=== PATIENT | male | born 1950 | race African-American/Black ===

== ENCOUNTER 2018-09-23 17:37 | Inpatient (IN) | payer OTHER ==
--- NOTE | 2018-09-23 22:11 | HP ---
COWS - Scale Resting Pulse: 0= [place] 80 or Below Sweatin=Flushed/Facial Moisture Restless Observation: 0= Sits Still Pupil Size: 0= Normal to Room Light Bone or Joint Aches: 4=Acute Joint/Muscle Pain Runny Nose/ Eye Tearin= Runny Nose/Eyes GI Upset > 30mins: 2= Nausea/Diarrhea (diarhea x 3) Tremor Observation: 2= Slight Tremor Visible Yawning Observation: 1= 1-2x During Session Anxiety or Irritability: 4=Extreme Anxiety Goose Flesh Skin: 0=Smooth Skin COWS Score: 17 CIWA Score - Admission Criteria OASAS Guidelines: Admission for Medically Managed Detox: Requires at least one of the followin. CIWA greater than 12 2. Seizures within the past 24 hours 3. Delirium tremens within the past 24 hours 4. Hallucinations within the past 24 hours 5. Acute intervention needed for co occurring medical disorder 6. Acute intervention needed for co occurring psychiatric disorder 7. Severe withdrawal that cannot be handled at a lower level of care (continued vomiting, continued diarrhea, abnormal vital signs) requiring intravenous medication and/or fluids 8. Admission ROS [facility] Chief Complaint: Heroin withdrawal symptoms Allergies/Adverse Reactions: Allergies Allergy/AdvReac Type Severity Reaction Status Date / Time No Known Allergies Allergy Verified 09/23/18 21:26 History of Present Illness: 68 years old male with 47 years of heroin dependence is seeking admission to detox. Patient reports that this is his first detoxification and first admission to [facility]. He has medical history of depression. Patient denies suicide attempt and suicidal ideation at this time - Ebola screening Have you traveled outside of the country in the last 21 days: No (N) Have you had contact with anyone from an Ebola affected area: No Do you have a fever: No Patient History - Patient Medical History Hx Anemia: No Hx Asthma: No Hx Chronic Obstructive Pulmonary Disease (COPD): No Hx Cancer: No Hx Cardiac Disorders: No Hx Congestive Heart Failure: No Hx Hypertension: No Hx Hypercholesterolemia: No Hx Pacemaker: No HX Cerebrovascular Accident: No Hx Seizures: No Hx Dementia: No Hx Diabetes: No Hx Gastrointestinal Disorders: No Hx Liver Disease: No Hx Genitourinary Disorders: No Hx Sexually Transmitted Disorders: No Hx Renal Disease (ESRD): No Hx Thyroid Disease: No Hx Hepatitis C: No Hx Depression: Yes Hx Suicide Attempt: No (Denies suicidal ideation at this tme) Hx Bipolar Disorder: No Hx Schizophrenia: No - Patient Surgical History Past Surgical History: Yes Hx Orthopedic Surgery: Yes (LEFT KNEE REPLACEMENT 2007) Other Surgical History: LEFT HAND SURGERY 2000 - PPD History Previous Implant?: Yes Documented Results: Negative w/o proof Implanted On Prior [facility] Admission?: No PPD to be Administered?: Yes - Reproductive History Patient is a Female of Child Bearing Age (11 -55 yrs old): No (Male) - Smoking Cessation Smoking history: Never smoked Have you smoked in the past 12 months: No Hx Chewing Tobacco Use: No Initiated information on smoking cessation: No - Substances abused Heroin Substance route: Inhalation Frequency: Daily Amount used: 5 to 6 bags Age of first use: 29 Date of last use: 09/23/18 Cocaine Other (specify): sniff Frequency: Daily Amount used: i don't know Age of first use: 29 Date of last use: 09/23/18 Family Disease History - Family Disease History Family History: Denies Admission Physical Exam [facility] - Physical General Appearance: Yes: Moderate Distress, Tremorous, Sweating, Anxious HEENTM: Yes: Normal ENT Inspection, Normal Voice Respiratory: Yes: Lungs Clear, Normal Breath Sounds, No Respiratory Distress Neck: Yes: Supple Breast: Yes: Breast Exam Deferred Cardiology: Yes: Regular Rhythm, Regular Rate Abdominal: Yes: Normal Bowel Sounds Genitourinary: Yes: Within Normal Limits Back: Yes: Normal Inspection Musculoskeletal: Yes: Back pain, Joint swelling, Muscle Pain Extremities: Yes: Tremors Neurological: Yes: Alert, Normal Mood/Affect Integumentary: Yes: Warm Lymphatic: Yes: Within Normal Limits - Diagnostic (1) Opioid dependence with withdrawal Current Visit: Yes Status: Chronic (2) Depression Current Visit: Yes Status: Chronic Qualifiers: Depression Type: unspecified Qualified Code(s): F32.9 - Major depressive disorder, single episode, unspecified (3) Cocaine dependence, uncomplicated Current Visit: Yes Status: Chronic Cleared for Admission [facility] - Detox or Rehab [facility] Level of Care: Medically Managed Detox Regimen/Protocol: Methadone Breathalyzer - Breathalyzer Breathalyzer: 0 Urine Drug Screen - Test Device Lot number: [id number] Expiration date: 09/20/19 - Control Is test valid?: Yes - Results Drug screen NEGATIVE: No Urine drug screen results: TROY-Cocaine, FEN-Fentanyl, MOP-Opiates, BZO- Benzodiazepines Inpatient Rehab Admission - Rehab Decision to Admit Inpatient rehab admission?: No
[2018-09-23] MEDS ORDERED: IBUPROFEN 400 MG TABLET (FP) PO PRN (22:23)
[2018-09-23] MEDS ORDERED: MAG HYDROX/AL HYDROX/SIMETH 30 ML UNIT-DOSE CUP PO PRN (22:23)
[2018-09-23] MEDS ORDERED: ACETAMINOPHEN 325 MG TABLET (FP) PO PRN ×2 (22:23)
[2018-09-23] MEDS ORDERED: MAGNESIUM HYDROX 2400MG/30ML ORAL SUSPENSION 30 ML CUP PO PRN (22:23)
[2018-09-23] MEDS ORDERED: MAGNESIUM CITRATE 300 ML BOTTLE PO PRN (22:23)
[2018-09-23] MEDS ORDERED: METHOCARBAMOL 500 MG TABLET PO PRN (22:23)
[2018-09-23] MEDS ORDERED: MENTHOL/PHENOL 1 EACH UD MM PRN (22:23)
[2018-09-23] MEDS ORDERED: hydrOXYzine PAMOATE 25 MG CAPSULE (FP) PO PRN (22:23)
[2018-09-23] MEDS ORDERED: BISMUTH SUBSALICYLATE 524 MG/30 ML UD PO PRN (22:23)
[2018-09-23] MEDS ORDERED: cloNIDine HCL 0.1 MG TABLET PO PRN (22:23)
[2018-09-23] MEDS ORDERED: METHADONE HCL 10 MG TABLET (FOR DETOX USE ONLY) PO ONE (23:00)
[2018-09-24] MEDS ORDERED: METHADONE HCL 10 MG TABLET (FOR DETOX USE ONLY) PO ONE (10:00)
[2018-09-24 10:19] LABS: HEMATOCRIT 39.6 % (35.4-49); HEMOGLOBIN 12.7 GM/dL (11.7-16.9); MCH 26.5 pg (25.7-33.7); MEAN CELL VOLUME 82.7 fl (80-96); MEAN PLT VOLUME 9.4 fl (7.5-11.1); PLATELET COUNT 216 K/MM3 (134-434); RBC 4.79 M/mm3 (4.00-5.60); RDW 14.7 % (11.9-15.9)
[2018-09-24] MEDS: PRENATAL VITAMINS W/ FOLIC ACID TABLET (FP) PO SCH (10:30)
[2018-09-24 10:34] LABS: ALBUMIN 3.1 g/dl (3.4-5.0); ALK PHOS 68 U/L (45-117); ANION GAP 8 MMOL/L (8-16); BILIRUBIN,TOTAL 0.5 mg/dL (0.2-1); BLOOD UREA NITROGEN 19 mg/dL (7-18); CALCIUM 8.7 mg/dL (8.5-10.1); CHLORIDE 105 mmol/L (98-107); CO2 28 mmol/L (21-32); CREATININE 1.3 mg/dL (0.55-1.3); GLUCOSE,RANDOM 92 mg/dL (74-106); SGOT/AST 14 U/L (15-37); SGPT/ALT 17 U/L (13-61); SODIUM 141 mmol/L (136-145); TOT PROT 6.9 g/dl (6.4-8.2)
--- NOTE | 2018-09-24 16:19 | PN ---
[facility] COWS - Scale Resting Pulse: 0= [place] 80 or Below Sweatin= Chills/Flushing Restless Observation: 0= Sits Still Pupil Size: 0= Normal to Room Light Bone or Joint Aches: 2= Severe Diffuse Aches Runny Nose/ Eye Tearin= None GI Upset > 30mins: 2= Nausea/Diarrhea Tremor Observation of Outstretched Hands: 2= Slight Tremor Visible Yawning Observation: 1= 1-2x During Session Anxiety or Irritability: 2=Irritable/Anxious Goose Flesh Skin: 3=Piloerection COWS Score: 13 BHS Progress Note (SOAP) Subjective: Sweating, Body Aches, Tremors, Diarrhea. Objective: PATIENT A & O X 3, OBSERVED AMBULATING ON UNIT. IN NO ACUTE DISTRESS. 09/24/18 16:20 Vital Signs Temperature 98.4 F 09/24/18 13:47 Pulse Rate 58 L 09/24/18 13:47 Respiratory Rate 18 09/24/18 13:47 Blood Pressure 111/74 09/24/18 13:47 O2 Sat by Pulse Oximetry (%) Laboratory Tests 09/24/18 09/24/18 09/24/18 07:00 07:00 07:00 WBC 4.0 RBC 4.79 Hgb 12.7 Hct 39.6 MCV 82.7 MCH 26.5 MCHC 32.0 RDW 14.7 Plt Count 216 MPV 9.4 Sodium 141 Potassium 4.0 Chloride 105 Carbon Dioxide 28 Anion Gap 8 BUN 19 H Creatinine 1.3 Creat Clearance w eGFR 55.06 Random Glucose 92 Calcium 8.7 Total Bilirubin 0.5 AST 14 L ALT 17 Alkaline Phosphatase 68 Total Protein 6.9 Albumin 3.1 L RPR Titer Nonreactive LABS NOTED. Assessment: 09/24/18 16:21 WITHDRAWAL SYMPTOMS. Plan: CONTINUE DETOX. INCREASE DAILY PO FLUID INTAKE. PRN PEPTO-BISMOL PO FOR DIARRHEA. D/C MAGNESIUM-CONTAINING MEDS. FOR ABNORMAL ADMISSION RENAL LAB VALUES.
[2018-09-24] MEDS: THIAMINE HCL 100 MG TABLET (FP) PO SCH (22:24)
[2018-09-25] MEDS ORDERED: METHADONE HCL 10 MG TABLET (FOR DETOX USE ONLY) PO ONE (10:00)
[2018-09-25] MEDS: PRENATAL VITAMINS W/ FOLIC ACID TABLET (FP) PO SCH (10:22)
--- NOTE | 2018-09-25 12:38 | PN ---
[facility] COWS - Scale Resting Pulse: 0= [place] 80 or Below Sweatin= Chills/Flushing Restless Observation: 1= Difficult to Sit Still Pupil Size: 1= Pupils >than Normal Bone or Joint Aches: 2= Severe Diffuse Aches Runny Nose/ Eye Tearin= Runny Nose/Eyes GI Upset > 30mins: 2= Nausea/Diarrhea Tremor Observation of Outstretched Hands: 2= Slight Tremor Visible Yawning Observation: 1= 1-2x During Session Anxiety or Irritability: 2=Irritable/Anxious Goose Flesh Skin: 0=Smooth Skin COWS Score: 14 S Progress Note (SOAP) Subjective: alert,irritable,anxious,interrupted sleep,tremor Objective: 09/25/18 12:40 Vital Signs Temperature 97.5 F L 09/25/18 10:17 Pulse Rate 62 09/25/18 10:17 Respiratory Rate 18 09/25/18 10:17 Blood Pressure 108/64 09/25/18 10:17 O2 Sat by Pulse Oximetry (%) Laboratory Last Values WBC 4.0 K/mm3 (4.0-10.0) 09/24/18 07:00 RBC 4.79 M/mm3 (4.00-5.60) 09/24/18 07:00 Hgb 12.7 GM/dL (11.7-16.9) 09/24/18 07:00 Hct 39.6 % (35.4-49) 09/24/18 07:00 MCV 82.7 fl (80-96) 09/24/18 07:00 MCH 26.5 pg (25.7-33.7) 09/24/18 07:00 MCHC 32.0 g/dl (32.0-35.9) 09/24/18 07:00 RDW 14.7 % (11.9-15.9) 09/24/18 07:00 Plt Count 216 K/MM3 (134-434) 09/24/18 07:00 MPV 9.4 fl (7.5-11.1) 09/24/18 07:00 Sodium 141 mmol/L (136-145) 09/24/18 07:00 Potassium 4.0 mmol/L (3.5-5.1) 09/24/18 07:00 Chloride 105 mmol/L (98-107) 09/24/18 07:00 Carbon Dioxide 28 mmol/L (21-32) 09/24/18 07:00 Anion Gap 8 MMOL/L (8-16) 09/24/18 07:00 BUN 19 mg/dL (7-18) H 09/24/18 07:00 Creatinine 1.3 mg/dL (0.55-1.3) 09/24/18 07:00 Creat Clearance w eGFR 55.06 (>60) 09/24/18 07:00 Random Glucose 92 mg/dL (74-106) 09/24/18 07:00 Calcium 8.7 mg/dL (8.5-10.1) 09/24/18 07:00 Total Bilirubin 0.5 mg/dL (0.2-1) 09/24/18 07:00 AST 14 U/L (15-37) L 09/24/18 07:00 ALT 17 U/L (13-61) 09/24/18 07:00 Alkaline Phosphatase 68 U/L (45-117) 09/24/18 07:00 Total Protein 6.9 g/dl (6.4-8.2) 09/24/18 07:00 Albumin 3.1 g/dl (3.4-5.0) L 09/24/18 07:00 RPR Titer Nonreactive (NONREACTIVE) 09/24/18 07:00 Assessment: 09/25/18 12:40 withdrawal symptom Plan: continue detox
[2018-09-25] MEDS: THIAMINE HCL 100 MG TABLET (FP) PO SCH (22:41)
[2018-09-25] MEDS: MELATONIN 5 MG TABLETS PO PRN (22:42)
[2018-09-26] MEDS ORDERED: METHADONE HCL 10 MG TABLET (FOR DETOX USE ONLY) PO ONE (10:00)
[2018-09-26] MEDS: PRENATAL VITAMINS W/ FOLIC ACID TABLET (FP) PO SCH (10:05)
--- NOTE | 2018-09-26 14:42 | PN ---
BHS Progress Note (SOAP) Subjective: Patient denies current Withdrawal / Detox symptoms and reports that he feels well overall. Objective: PATIENT A & O X 3, OBSERVED AMBULATING ON UNIT. IN NO ACUTE DISTRESS. 09/26/18 14:40 Vital Signs Temperature 97.1 F L 09/26/18 13:17 Pulse Rate 52 L 09/26/18 13:17 Respiratory Rate 18 09/26/18 13:17 Blood Pressure 132/80 09/26/18 13:17 O2 Sat by Pulse Oximetry (%) Laboratory Tests 09/24/18 09/24/18 09/24/18 07:00 07:00 07:00 WBC 4.0 RBC 4.79 Hgb 12.7 Hct 39.6 MCV 82.7 MCH 26.5 MCHC 32.0 RDW 14.7 Plt Count 216 MPV 9.4 Sodium 141 Potassium 4.0 Chloride 105 Carbon Dioxide 28 Anion Gap 8 BUN 19 H Creatinine 1.3 Creat Clearance w eGFR 55.06 Random Glucose 92 Calcium 8.7 Total Bilirubin 0.5 AST 14 L ALT 17 Alkaline Phosphatase 68 Total Protein 6.9 Albumin 3.1 L RPR Titer Nonreactive LABS NOTED. Assessment: 09/26/18 14:41 WITHDRAWAL SYMPTOMS. Plan: CONTINUE DETOX. PATIENT SCHEDULED FOR D/C TOMORROW AM.
[2018-09-26] MEDS: THIAMINE HCL 100 MG TABLET (FP) PO SCH (22:41)
[2018-09-26] MEDS: MELATONIN 5 MG TABLETS PO PRN (22:41)
[2018-09-27 05:56] VITALS: BP 135/76; PULSE 62; TEMP 98.9
[2018-09-27] MEDS ORDERED: METHADONE HCL 5 MG TABLET (FOR DETOX USE ONLY) PO ONE (06:00)
--- NOTE | 2018-09-27 08:53 | DS ---
[facility] Detox Discharge Summary Admission Date: 09/23/18 Discharge Date: 09/27/18 - History Present History: Opioid Dependence Additional Comments: 68 years old male admitted on 09/23/18 for opiate withdrawal stabilization [facility] Pertinent Past History: bring in lab report to follow up appointment - Physical Exam Results Vital Signs: Vital Signs Temperature 98.9 F 09/27/18 05:55 Pulse Rate 62 09/27/18 05:55 Respiratory Rate 18 09/27/18 05:55 Blood Pressure 135/76 09/27/18 05:55 O2 Sat by Pulse Oximetry (%) Pertinent Admission Physical Exam Findings: opiate withdrawal sx Vital Signs Temperature 98.9 F 09/27/18 05:55 Pulse Rate 62 09/27/18 05:55 Respiratory Rate 18 09/27/18 05:55 Blood Pressure 135/76 09/27/18 05:55 O2 Sat by Pulse Oximetry (%) Laboratory Last Values WBC 4.0 K/mm3 (4.0-10.0) 09/24/18 07:00 RBC 4.79 M/mm3 (4.00-5.60) 09/24/18 07:00 Hgb 12.7 GM/dL (11.7-16.9) 09/24/18 07:00 Hct 39.6 % (35.4-49) 09/24/18 07:00 MCV 82.7 fl (80-96) 09/24/18 07:00 MCH 26.5 pg (25.7-33.7) 09/24/18 07:00 MCHC 32.0 g/dl (32.0-35.9) 09/24/18 07:00 RDW 14.7 % (11.9-15.9) 09/24/18 07:00 Plt Count 216 K/MM3 (134-434) 09/24/18 07:00 MPV 9.4 fl (7.5-11.1) 09/24/18 07:00 Sodium 141 mmol/L (136-145) 09/24/18 07:00 Potassium 4.0 mmol/L (3.5-5.1) 09/24/18 07:00 Chloride 105 mmol/L (98-107) 09/24/18 07:00 Carbon Dioxide 28 mmol/L (21-32) 09/24/18 07:00 Anion Gap 8 MMOL/L (8-16) 09/24/18 07:00 BUN 19 mg/dL (7-18) H 09/24/18 07:00 Creatinine 1.3 mg/dL (0.55-1.3) 09/24/18 07:00 Creat Clearance w eGFR 55.06 (>60) 09/24/18 07:00 Random Glucose 92 mg/dL (74-106) 09/24/18 07:00 Calcium 8.7 mg/dL (8.5-10.1) 09/24/18 07:00 Total Bilirubin 0.5 mg/dL (0.2-1) 09/24/18 07:00 AST 14 U/L (15-37) L 09/24/18 07:00 ALT 17 U/L (13-61) 09/24/18 07:00 Alkaline Phosphatase 68 U/L (45-117) 09/24/18 07:00 Total Protein 6.9 g/dl (6.4-8.2) 09/24/18 07:00 Albumin 3.1 g/dl (3.4-5.0) L 09/24/18 07:00 RPR Titer Nonreactive (NONREACTIVE) 09/24/18 07:00 lab noted - Treatment Hospital Course: Detox Protocol Followed, Detoxed Safely, Responded well, Discharged Condition Good, Rehab Referral Accepted Patient has Accepted a Rehab Referral to: [facility] - Medication Discharge Medications: Ambulatory Orders NK [No Known Home Medication] 09/23/18 - Diagnosis (1) Opioid dependence with withdrawal Current Visit: Yes Status: Acute - AMA Did Patient Leave Against Medical Advice: No
== END 2018-09-27 09:14 | disposition home or self-care (01) | DRG 897 ==
LOC: YASAS 17:37 → Y3N 22:44
PROVIDERS: ADMIT Surgery; ATTEND Surgery
PROC: HZ2ZZZZ Detoxification Services for Substance Abuse Treatment (ICD-10-PCS; principal; 2018-09-23)
DX: F11.23 Opioid dependence with withdrawal (principal); F14.20 Cocaine dependence, uncomplicated; F32.9 Major depressive disorder, single episode, unspecified; Z96.652 Presence of left artificial knee joint
CPT/HCPCS: 36415; 80053; 85027; 86593; 90853